=== PATIENT | female | born 1990 | race Caucasian/White ===

== ENCOUNTER 2017-03-16 15:28 | Outpatient (CLI) ==
[2017-03-16 16:26] LABS: BASOPHILS % (AUTO) 0.8 % (0.0-3.0); EOSINOPHILS # (AUTO) 0.1 K/ul (0.0-0.7); EOSINOPHILS % (AUTO) 1.8 % (0.0-7.0); HEMATOCRIT 40.3 % (37.0-47.0); IMMATURE GRANULOCYTE % (AUTO) 0.4 % (0.0-5.0); LYMPHOCYTES # (AUTO) 1.2 K/uL (0.60-3.4); MEAN CORPUSCULAR HEMOGLOBIN 35.7 pg (27.0-31.0); MEAN CORPUSCULAR HGB CONC 34.7 (31.8-35.4); MEAN CORPUSCULAR VOLUME 102.8 fl (81.0-99.0); MONOCYTES # (AUTO) 0.3 K/uL (0.4-2.0); MONOCYTES % (AUTO) 6.1 (0-10); NEUTROPHILS # (AUTO) 3.3 K/ul (2.0-6.9); NEUTROPHILS % (AUTO) 66.9; PLATELET COUNT 178 10^3/uL (140-440); RED BLOOD COUNT 3.92 10^6/ul (4.20-5.40); WHITE BLOOD COUNT 4.92 K/ul (4.6-10.2)
[2017-03-16 19:10] LABS: ALBUMIN 3.3 g/dL (3.4-5.0); ALBUMIN/GLOBULIN RATIO 0.87; ANION GAP 10.8; BILIRUBIN,TOTAL 0.56 mg/dL (0.00-1.20); BUN/CREATININE RATIO 12.5; CALCIUM 8.8 mg/dL (8.2-10.2); CREATININE 0.88 mg/dL (0.60-1.30); POTASSIUM 3.8 mmol/L (3.5-5.10); TOTAL PROTEIN 7.1 g/dL (6.4-8.2)
== END 2017-03-16 15:29 | disposition home or self-care (01) ==
LOC: LAB 15:28
DX: Z00.00 Encounter for general adult medical examination without abnormal findings (principal); M60.9 Myositis, unspecified; L40.9 Psoriasis, unspecified; D61.818 Other pancytopenia; E03.9 Hypothyroidism, unspecified; Z79.899 Other long term (current) drug therapy
CPT/HCPCS: 36415; 80053; 82085; 82550; 84443; 85025

== ENCOUNTER 2017-08-25 16:06 | Outpatient (CLI) | END 2017-08-25 16:07 | disposition home or self-care (01) | LOC: LAB 16:06 | PROVIDERS: ATTEND Emergency Medicine | DX: E03.9 Hypothyroidism, unspecified (principal) | CPT/HCPCS: 36415; 84436; 84443; 84479 ==

== ENCOUNTER 2017-10-05 13:38 | Outpatient (CLI) | END 2017-10-05 13:39 | disposition home or self-care (01) | LOC: LAB 13:38 | PROVIDERS: ATTEND Emergency Medicine | DX: E03.9 Hypothyroidism, unspecified (principal) | CPT/HCPCS: 36415; 84436; 84443; 84479 ==

== ENCOUNTER 2017-10-05 15:26 | Outpatient (CLI) ==
--- NOTE | 2017-10-05 16:24 | DI ---
EXAM: Three views of the lumbar spine. History: Lower back pain. Findings: No acute fracture. Minimal 2 mm anterolisthesis of L3 on L4. Severe disc space narrowing at L3-L4 with endplate sclerosis, osteophyte formation and vacuum disc phenomenon. Mild disc space narrowing seen elsewhere. Impression: 1. No acute osseous abnormality of the lumbar spine. 2. Severe degenerative disc disease at L3-L4.
== END 2017-10-05 15:27 | disposition home or self-care (01) ==
LOC: RAD 15:26
PROVIDERS: ATTEND Emergency Medicine
DX: M54.5 Low back pain (principal)

== ENCOUNTER 2017-11-02 07:51 | Outpatient (CLI) | END 2017-11-02 07:52 | disposition home or self-care (01) | LOC: LAB 07:51 | PROVIDERS: ATTEND Emergency Medicine | DX: Q90.9 Down syndrome, unspecified (principal); E03.9 Hypothyroidism, unspecified | CPT/HCPCS: 36415; 81050; 82530; 82533; 84443 ==

== ENCOUNTER 2017-12-19 10:11 | Outpatient (CLI) ==
[2017-12-19 12:03] VITALS: BMI 59.8
== END 2017-12-19 10:12 | disposition home or self-care (01) ==
LOC: DIETCN 10:11
PROVIDERS: ATTEND Emergency Medicine
DX: E66.9 Obesity, unspecified (principal); G47.33 Obstructive sleep apnea (adult) (pediatric)

== ENCOUNTER 2018-01-30 14:22 | Outpatient (CLI) | END 2018-01-30 14:23 | disposition home or self-care (01) | LOC: LAB 14:22 | PROVIDERS: ATTEND Internal Medicine | DX: M60.9 Myositis, unspecified (principal); M32.9 Systemic lupus erythematosus, unspecified; Z79.899 Other long term (current) drug therapy | CPT/HCPCS: 36415; 80053; 82085; 85025; 85651; 86140; 86160; 86225 ==

== ENCOUNTER 2018-06-13 13:00 | Outpatient (CLI) | END 2018-06-13 13:01 | disposition home or self-care (01) | LOC: LAB 13:00 | PROVIDERS: ATTEND Internal Medicine | DX: M35.1 Other overlap syndromes (principal) | CPT/HCPCS: 81001; 82570; 84156; 87086 ==

== ENCOUNTER 2018-09-26 13:46 | Outpatient (CLI) ==
[2018-09-26 14:09] VITALS: BP 143/85; TEMP 98.6
[2018-09-26] MEDS ORDERED: HEPARIN 500 UNIT/5 ML (PORT ACCESS TRAY ONLY) IVF ONE (15:24)
[2018-09-26] MEDS ORDERED: SALINE FLUSH (PORT ACCESS TRAY USE ONLY) IVF ONE (15:24)
== END 2018-09-26 13:47 | disposition home or self-care (01) ==
LOC: OPMED 13:46
PROVIDERS: ATTEND Family Medicine
DX: Z45.2 Encounter for adjustment and management of vascular access device (principal); D72.819 Decreased white blood cell count, unspecified
CPT/HCPCS: 96523

== ENCOUNTER 2018-11-15 09:54 | Outpatient (CLI) | END 2018-11-15 09:55 | disposition home or self-care (01) | LOC: LAB 09:54 | PROVIDERS: ATTEND Family Medicine | DX: E03.9 Hypothyroidism, unspecified (principal) | CPT/HCPCS: 36591; 84443 ==